=== PATIENT | female | born 1990 | race Caucasian/White ===

== ENCOUNTER 2017-01-19 13:47 | Emergency (ER) | payer OTHER ==
[~2017-01-19] VITALS: Ht 160 cm; Wt 86.4 kg
[2017-01-19 13:57] VITALS: BP 134/95; PULSE 113; RESP 18; O2SAT 96
== END 2017-01-19 16:54 | disposition left against medical advice (07) ==
LOC: SED 13:47
DX: R10.31 Right lower quadrant pain (principal); Z53.21 Procedure and treatment not carried out due to patient leaving prior to being seen by health care provider